=== PATIENT | female | born 1940 | race Hispanic/Latino ===

== ENCOUNTER 2017-06-18 14:29 | Outpatient (CLI) | payer MEDICARE ==
--- NOTE | 2017-06-19 13:55 | Mammography Report ---
BILATERAL DIGITAL SCREENING MAMMOGRAM with CAD : 06/18/17 14:29:00 CLINICAL: Routine screening. COMPARISON:06/25/16 FINDINGS: The breasts are heterogeneously dense, which may obscure small masses.Stable bilateral benign calcifications. No mass, architectural distortion or suspicious calcifications. IMPRESSION: No mammographic evidence of malignancy. BI-RADS CATEGORY: 2 -- Benign RECOMMENDATION: Routine mammographic screening in one year. COMMENT: Patient follow-up letters are generated by our [employer] application.
== END 2017-06-18 14:30 | disposition home or self-care (01) ==
LOC: SPVWC 14:29
PROVIDERS: ATTEND Family Medicine
DX: Z12.31 Encounter for screening mammogram for malignant neoplasm of breast (principal)
CPT/HCPCS: 77067; G0202